=== PATIENT | male | born 1990 | race Caucasian/White ===

== ENCOUNTER 2023-04-21 20:17 | Emergency (ER) | payer OTHER, SELFPAY ==
[2023-04-21 20:21] VITALS: BP 126/58; RESP 24; TEMP 38.3; O2SAT 99; BMI 28.2
[2023-04-21] MEDS: 0.9 % SODIUM CHLORIDE 1000 ml 1,000 ML IV (20:54)
[2023-04-21 20:55] VITALS: TEMP 38.3
[2023-04-21] MEDS: KETOROLAC 15 MG/ML inj IVP (20:55)
[2023-04-21] MEDS: ONDANSETRON 2 MG/ML inj 4 MG IVP (20:55)
--- NOTE | 2023-04-21 21:01 | ED_ITS ---
HPI - General Adult General Date Seen: 04/21/23 Chief complaint: Abdominal Pain Stated complaint: abdominal pain, vomiting Time Seen by Provider: 04/21/23 20:25 Source: patient, RN notes reviewed, old records reviewed and other Mode of arrival: ambulatory Limitations: no limitations History of Present Illness HPI narrative: Patient is a 32-year-old male here referred here from urgent care for evaluation of fever, vomiting, diarrhea, abdominal pain. He says he has been sick since yesterday. His primary complaint is actually sore throat which is the 1st thing he noticed. Then he developed chills and body aches, fever, then vomiting and diarrhea. He did have some brown material in his last emesis. He says stools have been green and black. He does have a history of alcohol use but has been sober for 2 years. His children were just sick with a febrile illness as well. He denies abdominal surgeries. He does not have a history of diverticulitis, colitis, inflammatory bowel disease or other GI history. Other medical history reviewed, includes panic attacks and anxiety. He continues to smoke cigarettes. He occasionally uses THC. He is not drinking. [place] [id number] [place] urgent care. UA and influenza testing were not done. Related Data Previous Rx's Medication Instructions Recorded sertraline 100 mg tablet 100 mg PO DAILY #90 tabs 03/08/23 Allergies Allergy/AdvReac Type Severity Reaction Status Date / Time cephalexin Allergy Intermediate Rash Verified 04/21/23 21:05 citalopram AdvReac Intermediate Dizziness Verified 04/21/23 21:05 [facility] Medical History Encounter for postoperative care ?Z48.89 - Encounter for other specified surgical aftercare (ICD-10) Surgical History History of tooth extraction ?K08.409 - Partial loss of teeth, unspecified cause, unspecified class (ICD- 10) Social History Narrative: alcohol abuse, , dedicated truck driver, 3 kids, social drinker 3/day, tobacco abuse 1ppd for 16 years What is your current living situation?: I presently have a place to live Problems where you live: declined to answer In the past 12 months, utilities in danger of being shut off: no In past 12 months, lack of transportation kept you from medical appts, meetings, work, or getting things needed for daily living: no In the past 12 mos, have been you worried that your food would run out before you had money to buy more?: never true In the past 12 mos, the food you bought just didn't last and you didn't have money to buy more?: never true Smoking Status: Former smoker What tobacco products do you use: cigarettes Smoking quit date/years: <= 15 years ago Non-prescribed substance use: denies use How often does anyone, including family, friends and others, physically hurt you : never How often does anyone, including family, friends and others, insult or talk down to you: never How often does anyone, including family, friends and others, threaten you with harm: never How often does anyone, including family, friends and others, scream or curse at you: never Little interest or pleasure in doing things: not at all Feeling down, depressed, or hopeless: not at all Exam Narrative: Exam Narrative: Vital signs as noted above. In general, an alert, nontoxic male. He is somewhat shaky. Head: Normocephalic, atraumatic. Eyes: Pupils are equal reactive. Extraocular movements are full. Conjunctivae are normal. ENT: Mucous membranes are moist. Tonsils are erythematous bilaterally, no exudate. Neck: Supple, no meningeal signs. Shotty adenopathy. Heart: Mildly tachycardic, regular. No murmur. Lungs: Clear bilaterally. No increased work of breathing, crackles or wheezes. No CVA tenderness. Abdomen: Soft and nondistended. Nontender to palpation, no rebound guarding or rigidity. Extremities: Well perfused. No edema. No calf tenderness. Pulses intact. Neurologic: Patient is alert and oriented to person and place. Speech is fluent. Face is symmetric. Moves all extremities equally. Affect: Normal. Skin: Warm and dry. Well perfused. Const: Vital Signs, click to edit/add: Vital Signs - 24 hr 04/21/23 20:21 04/21/23 20:55 Temperature 100.9 F H 100.9 F H Respiratory Rate 24 Blood Pressure [Le ft Upper Arm] 126/58 L Pulse Oximetry 99 Oxygen Delivery Me thod Room Air Documenting provider has reviewed patient's vital signs: yes Course Course ED Course: Patient presents with a myriad of symptoms including vomiting diarrhea, left lower quadrant pain, sore throat, fever. Overall, presentation is somewhat suggestive of a viral process such as influenza, particularly with children being sick recently. White blood cell count is elevated. Will check a CRP, LFTs, lipase. Give some fluids, Zofran, check a urine and flu/COVID/RSV as well as strep. Diagnostic considerations include respiratory illness such as influenza or COVID, strep throat, somewhat less likely intra-abdominal process such as diverticulitis, colitis, kidney stone, urinary tract infection, pyelonephritis. Influenza and COVID were negative, strep returned positive. Discussed this result with patient and his , who is 1 of our ER nurses here. Overall, somewhat atypical for strep to cause localized left lower quadrant pain, vomitin g, diarrhea. Discussed options of CT scan versus observation for the abdominal symptoms. They opted to pursue CT scan tonight. My review of CT scan is at there is no evidence of diverticulitis or other inflammatory changes in the left lower quadrant, no kidney stone or hydro nephrosis. Final radiology read is read as following:Findings: Lower chest: No acute abnormality appreciated. Hepatobiliary: No significant parenchymal abnormality is appreciated. Spleen: Unremarkable. Pancreas: No acute abnormality appreciated. Adrenal glands: No acute abnormality appreciated. Kidneys: No significant parenchymal abnormality appreciated. No visualized calculi. No hydronephrosis. Bowel: No obstruction. No focal perienteric or pericolonic stranding is appreciated. The appendix is visualized and appears unremarkable. Vascular: No acute abnormality appreciated. Lymph nodes: No gross lymphadenopathy. Peritoneum: No free air. No free fluid. : No acute abnormality appreciated. Soft tissues: No acute abnormality appreciated. Bones: No acute fracture. No lytic or blastic lesion. Impression: No abnormal findings appreciated to account for patient`s reported symptoms. He is feeling somewhat improved. Will go ahead and prescribe amoxicillin and Zofran through [facility]. Clear liquids tomorrow, advance as able. Anticipate gradual improvement over the next couple of days. Advised that diarrhea may persist for 7-10 days, should be seen for symptoms that continue past that. Return any time for acute worsening Vital Signs Vital signs: Initial Vital Signs Temperature 100.9 F H 04/21/23 20:21 Temperature Source Temporal Artery Scan 04/21/23 20:21 Pulse Rhythm Regular 04/21/23 20:21 Pulse Strength 3+ Normal 04/21/23 20:21 Respiratory Rate 24 04/21/23 20:21 Blood Pressure 126/58 L 04/21/23 20:21 Blood Pressure Mean 80 04/21/23 20:21 Blood Pressure Position Sitting 04/21/23 20:21 Pulse Oximetry 99 04/21/23 20:21 Oxygen Delivery Method Room Air 04/21/23 20:21 Vital Signs Temperature 100.9 F H 04/21/23 20:21 Respiratory Rate 24 04/21/23 20:21 Blood Pressure 126/58 L 04/21/23 20:21 Pulse Oximetry 99 04/21/23 20:21 Oxygen Delivery Method Room Air 04/21/23 20:21 Temperature 100.9 F H 04/21/23 20:55 Respiratory Rate 24 04/21/23 20:21 Blood Pressure 126/58 L 04/21/23 20:21 Pulse Oximetry 99 04/21/23 20:21 Oxygen Delivery Method Room Air 04/21/23 20:21 Medications Administered Medications: Discontinued Medications Generic Name Dose Route Start Last Admin Trade Name Freq PRN Reason Stop Dose Admin Sodium Chloride 1,000 mls @ 1,000 mls/hr 04/21/23 20:45 04/21/23 22:06 0.9 % Sodium Chloride 1000 Ml IV 04/21/23 21:44 Infused .Q1H NETTA Infusion Ketorolac Tromethamine 15 mg 04/21/23 20:36 04/21/23 20:55 Ketorolac 15 Mg/Ml Inj IVP 04/21/23 20:37 15 mg ONCE ONE Administration Ondansetron HCl 4 mg 04/21/23 20:36 04/21/23 20:55 Ondansetron 2 Mg/Ml Inj IVP 04/21/23 20:37 4 mg ONCE ONE Administration Medical Decision Making Lab Data Labs: Lab Results 04/21/23 04/21/23 04/21/23 Range/Units 20:36 20:40 21:52 Total Bilirubin 0.7 (0.1-1.5) mg/dL Direct Bilirubin 0.2 (0.0-0.5) mg/dL AST 26 (12-35) U/L ALT 31 (4-50) U/L Alkaline Phosphatase 102 (40-150) U/L C-Reactive Protein 15.1 H (0.5-1.0) mg/dL Total Protein 7.5 (6.0-8.3) g/dL Albumin 4.4 (3.3-5.0) g/dL Lipase 26 (23-300) U/L Urine Color Yellow (Yellow) Urine Appearance Clear (Clear) Urine pH 8.5 (5.0-8.5) Ur Specific [place] 1.015 (1.000-1.030) Urine Protein 2+ A (Negative) Urine Glucose (UA) Negative (Negative) Urine Ketones 1+ A (Negative) Urine Blood Negative (Negative) Urine Nitrite Negative (Negative) Urine Bilirubin Negative (Negative) Urine Urobilinogen 0.2 (0.2-1.0) Ur Leukocyte Esterase Negative (Negative) SARS-CoV-2 (PCR) Negative SARS-CoV-2 (Negative) Influenza Type A (PCR) Negative PCR FLU A (Negative) Influenza Type B (PCR) Negative PCR FLU B (Negative) RSV (PCR) Negative PCR RSV (Negative) Group A Strep DNA DETECTED A (Not Detectd) Discharge Plan Discharge Clinical Impression: Nausea, vomiting, and diarrhea, Strep throat Patient Disposition: Home, Self-Care Condition: Improved Instructions: Strep Throat (DC), Gastroenteritis (DC) Additional Instructions: Antibiotic as prescribed. Ibuprofen and/or Tylenol as needed for fever, abdominal pain, sore throat etcetera. Zofran if needed for nausea/vomiting. Anticipate gradual improvement over the next couple of days, return for worsening. Prescriptions: No Action sertraline 100 mg tablet 100 mg PO DAILY Qty: 90 3RF Follow Up/Referrals: Elias Wiggins MD [Primary Care Provider] - Stand Alone Forms: [employer] Info Instructions
[2023-04-21 21:12] LABS: Strep A DNA Probe* DETECTED (Not Detectd)
[2023-04-21 21:12] LABS: Albumin* 4.4 g/dL (3.3-5.0)
[2023-04-21 21:15] LABS: Alkaline Phosphatase* 102 U/L (40-150); Aspartate Amino Transferase* 26 U/L (12-35); Bilirubin Direct* 0.2 mg/dL (0.0-0.5); Bilirubin Total* 0.7 mg/dL (0.1-1.5); Total Protein* 7.5 g/dL (6.0-8.3)
[2023-04-21 21:16] LABS: Alanine Aminotransferase* 31 U/L (4-50); Lipase* 26 U/L (23-300)
[2023-04-21 21:25] LABS: PCR FLU A Negative PCR FLU A (Negative); PCR FLU B Negative PCR FLU B (Negative); PCR RSV Negative PCR RSV (Negative); SARS PCR* Negative SARS-CoV-2 (Negative)
[2023-04-21 21:31] LABS: C Reactive Protein* 15.1 mg/dL (0.5-1.0)
--- NOTE | 2023-04-21 21:49 | CT_ITS ---
Patient: ERROL JOHNSON Facility:?[facility] Patient ID:?[id number] Site Patient ID:?[id number]. Site :?[id number] Study:?CT-Abdomen/Pelvis w/ 100cc [id number]/15/2024 10:03:48 PM Ordering Physician:Marin Barrera Final Report: Indication: Fever, left lower quadrant pain, vomiting, diarrhea Technique: CT through the abdomen and pelvis following 100 mL Isovue 370 IV contrast Comparison: CT abdomen pelvis performed 10/20/2019 Findings: Lower chest: No acute abnormality appreciated. Hepatobiliary: No significant parenchymal abnormality is appreciated. Spleen: Unremarkable. Pancreas: No acute abnormality appreciated. Adrenal glands: No acute abnormality appreciated. Kidneys: No significant parenchymal abnormality appreciated. No visualized calculi. No hydronephrosis. Bowel: No obstruction. No focal perienteric or pericolonic stranding is appreciated. The appendix is visualized and appears unremarkable. Vascular: No acute abnormality appreciated. Lymph nodes: No gross lymphadenopathy. Peritoneum: No free air. No free fluid. : No acute abnormality appreciated. Soft tissues: No acute abnormality appreciated. Bones: No acute fracture. No lytic or blastic lesion. Impression: No abnormal findings appreciated to account for patient`s reported symptoms. Please note that all CT scans at this facility use dose modulation, iterative reconstruction, and/or weight-based dosing when appropriate to reduce radiation dose to as low as reasonably achievable. Dictated by Torrey Yi MD @ 04/21/2023 10:21:16 PM Signed by:?Torrey Yi MD @04/21/2023 10:21:16 PM (Electronic Signature)
[2023-04-21 21:57] LABS: Appearance Urine Clear (Clear); Bilirubin Urine Negative (Negative); Blood Urine Negative (Negative); Color Urine Yellow (Yellow); Glucose Urine Negative (Negative); Ketones Urine 1+ (Negative); Leukocyte Esterase Urine Negative (Negative); Nitrite Urine Negative (Negative); Protein Urine 2+ (Negative); Specific Gravity Urine 1.015 (1.000-1.030); Urobilinogen Urine 0.2 (0.2-1.0); pH Urine 8.5 (5.0-8.5)
[2023-04-21 22:25] LABS: Bacteria Urine Moderate; RBC Urine 0-2 (0-2); WBC Urine 0-2 (0-5)
[2023-04-21 22:33] VITALS: BP 107/71; PULSE 104
== END 2023-04-21 22:36 | disposition home or self-care (01) ==
PROVIDERS: Emergency Provider Emergency Medicine; PCP Family Medicine
DX: R11.2 Nausea with vomiting, unspecified (principal); J02.0 Streptococcal pharyngitis
CPT/HCPCS: 36415; 74177; 80076; 81001; 83690; 86140; 87086; 87631; 87651; 96374; 96375; 99283; 99284; J1885; J2405; J7030; Q9967